=== PATIENT | female | born 1945 | race African-American/Black ===

== ENCOUNTER 2017-11-25 11:20 | Inpatient (IN) | payer MEDICARE, OTHER ==
[2017-11-25] MEDS: DILTIAZEM-D5W 125MG/125ML DRIP 125 ML IV (11:38)
[2017-11-25] MEDS: DILTIAZEM 25 MG INJ IV (11:59)
[2017-11-25] MEDS: SOD CHLORIDE 0.9% 500 ML IV (11:59)
[2017-11-25 12:18] LABS: ADD MAN DIFF? NO
[2017-11-25 12:23] LABS: BASOPHIL # 0.1 10^3/ul (0.0-0.1); BASOPHILS % 1.9 % (0.0-2.0); EOSINOPHILS # 0.3 10^3/ul (0.0-0.5); EOSINOPHILS % 5.1 % (0.0-7.0); HEMATOCRIT 43.6 % (37.0-47.0); HEMOGLOBIN 14.1 g/dl (12.0-16.0); LYMPHOCYTES # 1.6 10^3/ul (0.8-2.9); LYMPHOCYTES % 30.1 % (15.0-51.0); MEAN CORPUSCULAR HEMOGLOBIN 28.6 pg (29.0-33.0); MEAN CORPUSCULAR HGB CONC 32.3 g/dl (32.0-37.0); MEAN CORPUSCULAR VOLUME 88.4 fl (82.0-101.0); MEAN PLATELET VOLUME 11.1 fl (7.4-10.4); MONOCYTE # 0.5 10^3/ul (0.3-0.9); MONOCYTES % 8.6 % (0.0-11.0); NEUTROPHIL # 2.9 10^3/ul (1.6-7.5); NEUTROPHILS % 54.1 % (39.0-77.0); PLATELET COUNT 223 10^3/UL (140-415); RED BLOOD COUNT 4.93 10^6/ul (4.20-5.40); RED CELL DISTRIBUTION WIDTH 12.9 % (11.5-14.5)
[2017-11-25 12:23] LABS: WHITE BLOOD COUNT 5.3 10^3/ul (4.8-10.8)
[2017-11-25 12:40] LABS: INR 0.87; PARTIAL THROMBOPLASTIN TIME 28.1 Sec (25.0-35.0); PROTIME 11.9 Sec (11.9-14.9); PT RATIO 0.9
[2017-11-25 12:51] LABS: ALANINE AMINOTRANSFERASE 15 IU/L (13-69); ALBUMIN 3.9 g/dl (3.3-4.9); ALBUMIN/GLOBULIN RATIO 1.05; ALKALINE PHOSPHATASE 137 IU/L (42-121); ANION GAP 15 (8-16); ASPARTATE AMINO TRANSFERASE 19 IU/L (15-46); BILIRUBIN,INDIRECT 0.3 mg/dl (0-1.1); BILIRUBIN,TOTAL 0.3 mg/dl (0.2-1.3); BLOOD UREA NITROGEN 11 mg/dl (7-20); CALCIUM 9.6 mg/dl (8.4-10.2); CARBON DIOXIDE 28 mmol/L (21-31); CHLORIDE 101 mmol/L (97-110); CREATINE KINASE 37 IU/L (23-200); GLUCOSE 251 mg/dl (70-220); POTASSIUM 3.4 mmol/L (3.5-5.1); SODIUM 141 mmol/L (135-144); TOTAL PROTEIN 7.6 g/dl (6.1-8.1)
[2017-11-25 13:03] LABS: B-TYPE NATRIURETIC PEPTIDE 1320 PG/ML (0-125); CK INDEX 1.1; CK-MB 0.41 ng/ml (0.0-2.4); TROPONIN-I < 0.010 ng/ml (0.000-0.120)
[2017-11-25] MEDS ORDERED: NACL 0.9% 3 ML SYG IV (13:30)
[2017-11-25] MEDS ORDERED: ONDANSETRON 4 MG INJ IV (13:30)
[2017-11-25] MEDS ORDERED: ACETAMINOPHEN 325 MG TAB PO (13:30)
[2017-11-25] MEDS ORDERED: GLUCOSE GEL 15 GRAM TUBE PO ×2 (14:00)
[2017-11-25] MEDS ORDERED: DEXTROSE 50% 50 ML SYRINGE IV ×2 (14:00)
[2017-11-25] MEDS ORDERED: GLUCAGON 1 MG INJ IM (14:00)
[2017-11-25] MEDS ORDERED: GLUCOSE GEL 15 GRAM TUBE BUCCAL (14:00)
[2017-11-25] MEDS: METOPROLOL (XL) 50 MG TAB PO (15:38)
[2017-11-25] MEDS ORDERED: LORAZEPAM 0.5 MG TAB PO (17:00)
[2017-11-25] MEDS: hydrALAzine 20 MG INJ IV ×2 (17:21→22:28)
[2017-11-25] MEDS: metFORMIN 500 MG TAB PO (17:21)
[2017-11-25] MEDS: INSULIN ASPART [NOVOLOG] 3 ML PEN SC ×2 (18:00→20:44)
[2017-11-25] MEDS: NIFEdipine (XL) 60 MG TAB PO (20:41)
[2017-11-25] MEDS: INSULIN GLARGINE [LANTus] (100 UNITS/ML) SYG SC (22:30)
[2017-11-26 05:49] LABS: ADD MAN DIFF? NO
[2017-11-26 06:11] LABS: WHITE BLOOD COUNT 5.3 10^3/ul (4.8-10.8)
[2017-11-26 06:11] LABS: BASOPHIL # 0.1 10^3/ul (0.0-0.1); BASOPHILS % 1.5 % (0.0-2.0); EOSINOPHILS # 0.4 10^3/ul (0.0-0.5); EOSINOPHILS % 6.6 % (0.0-7.0); HEMATOCRIT 38.1 % (37.0-47.0); HEMOGLOBIN 12.4 g/dl (12.0-16.0); LYMPHOCYTES # 1.7 10^3/ul (0.8-2.9); LYMPHOCYTES % 31.5 % (15.0-51.0); MEAN CORPUSCULAR HEMOGLOBIN 28.5 pg (29.0-33.0); MEAN CORPUSCULAR HGB CONC 32.5 g/dl (32.0-37.0); MEAN CORPUSCULAR VOLUME 87.6 fl (82.0-101.0); MEAN PLATELET VOLUME 10.8 fl (7.4-10.4); MONOCYTE # 0.5 10^3/ul (0.3-0.9); MONOCYTES % 9.5 % (0.0-11.0); NEUTROPHIL # 2.7 10^3/ul (1.6-7.5); NEUTROPHILS % 50.5 % (39.0-77.0); PLATELET COUNT 163 10^3/UL (140-415); RED BLOOD COUNT 4.35 10^6/ul (4.20-5.40); RED CELL DISTRIBUTION WIDTH 12.8 % (11.5-14.5)
[2017-11-26 06:42] LABS: ALANINE AMINOTRANSFERASE 17 IU/L (13-69); ALBUMIN 3.3 g/dl (3.3-4.9); ALKALINE PHOSPHATASE 91 IU/L (42-121); ANION GAP 9 (8-16); ASPARTATE AMINO TRANSFERASE 16 IU/L (15-46); BILIRUBIN,INDIRECT 0.2 mg/dl (0-1.1); BILIRUBIN,TOTAL 0.2 mg/dl (0.2-1.3); BLOOD UREA NITROGEN 13 mg/dl (7-20); CALCIUM 9.3 mg/dl (8.4-10.2); CARBON DIOXIDE 27 mmol/L (21-31); CHLORIDE 106 mmol/L (97-110); GLUCOSE 130 mg/dl (70-220); POTASSIUM 3.1 mmol/L (3.5-5.1); SODIUM 139 mmol/L (135-144); TOTAL PROTEIN 6.3 g/dl (6.1-8.1)
[2017-11-26 06:46] LABS: HEMOGLOBIN A1C 8.7 % (0-5.9)
[2017-11-26] MEDS: INSULIN ASPART [NOVOLOG] 3 ML PEN SC ×2 (08:00→11:57)
[2017-11-26] MEDS: NIFEdipine (XL) 60 MG TAB PO (08:22)
[2017-11-26] MEDS: metFORMIN 500 MG TAB PO (08:22)
[2017-11-26] MEDS: METOPROLOL (XL) 50 MG TAB PO (08:23)
[2017-11-26] MEDS: ENOXAPARIN 40 MG/0.4 ML SYG SC (09:30)
[2017-11-26] MEDS: POTASSIUM CHLORIDE (SR) 20 MEQ TAB PO (12:27)
== END 2017-11-26 12:40 | disposition home or self-care (01) | DRG 310 ==
LOC: E/R 11:20 → 6WM 13:08
DX: I48.0 Paroxysmal atrial fibrillation (principal); I10 Essential (primary) hypertension; E11.9 Type 2 diabetes mellitus without complications; F17.210 Nicotine dependence, cigarettes, uncomplicated; Z79.4 Long term (current) use of insulin
CPT/HCPCS: 71045; 80053; 82550; 82553; 82962; 83036; 83880; 84443; 84484; 85025; 85610; 85730; 93005; 93306; 96374; 99291-25

== ENCOUNTER 2018-06-03 14:25 | Inpatient (IN) | payer MEDICARE, OTHER ==
[2018-06-03 14:47] LABS: ADD MAN DIFF? NO
[2018-06-03] MEDS: hydrALAzine 20 MG INJ IV (14:50)
[2018-06-03 14:58] LABS: WHITE BLOOD COUNT 4.8 10^3/ul (4.8-10.8)
[2018-06-03 14:58] LABS: BASOPHIL # 0.1 10^3/ul (0.0-0.1); BASOPHILS % 1.3 % (0.0-2.0); EOSINOPHILS # 0.2 10^3/ul (0.0-0.5); EOSINOPHILS % 3.6 % (0.0-7.0); HEMOGLOBIN 13.5 g/dl (12.0-16.0); LYMPHOCYTES # 1.2 10^3/ul (0.8-2.9); LYMPHOCYTES % 24.1 % (15.0-51.0); MEAN CORPUSCULAR HEMOGLOBIN 28.5 pg (29.0-33.0); MEAN CORPUSCULAR HGB CONC 32.1 g/dl (32.0-37.0); MEAN CORPUSCULAR VOLUME 88.8 fl (82.0-101.0); MEAN PLATELET VOLUME 11.6 fl (7.4-10.4); MONOCYTE # 0.3 10^3/ul (0.3-0.9); MONOCYTES % 6.9 % (0.0-11.0); NEUTROPHIL # 3.1 10^3/ul (1.6-7.5); NEUTROPHILS % 63.9 % (39.0-77.0); PLATELET COUNT 179 10^3/UL (140-415); RED BLOOD COUNT 4.73 10^6/ul (4.20-5.40); RED CELL DISTRIBUTION WIDTH 13.5 % (11.5-14.5)
[2018-06-03 15:17] LABS: INR 0.95; PROTIME 12.8 Sec (11.9-14.9)
[2018-06-03 15:18] LABS: PARTIAL THROMBOPLASTIN TIME 28.5 Sec (23.0-35.0)
[2018-06-03 15:26] LABS: ANION GAP 10 (5-13); BLOOD UREA NITROGEN 25 mg/dl (7-20); CALCIUM 10.1 mg/dl (8.4-10.2); CARBON DIOXIDE 25 mmol/L (21-31); CHLORIDE 104 mmol/L (97-110); CHOL/HDL RATIO 5.3 RATIO; CHOLESTEROL 197 mg/dl (100-200); GLUCOSE 133 mg/dl (70-220); HDL CHOLESTEROL 37 mg/dl (33-92); LDL CHOLESTEROL,CALCULATED 139 mg/dl; POTASSIUM 3.3 mmol/L (3.5-5.1); SODIUM 139 mmol/L (135-144); TRIGLYCERIDES 105 mg/dl (0-149)
[2018-06-03 15:37] LABS: TROPONIN-I < 0.012 ng/ml (0.000-0.120)
[2018-06-03 15:48] LABS: HEMOGLOBIN A1C 6.3 % (0-5.9)
[2018-06-03] MEDS: niCARdipine-NS 0.1MG/ML DRIP 200 ML IV (16:31)
[2018-06-03] MEDS ORDERED: morphine 2 MG INJ IV (17:30)
[2018-06-03] MEDS ORDERED: NACL 0.9% 3 ML SYG IV (17:30)
[2018-06-03] MEDS ORDERED: NITROGLYCERIN (SL) 0.4 MG TAB SL (17:30)
[2018-06-03] MEDS ORDERED: HYDROCODONE/APAP (5/325) TAB PO (17:30)
[2018-06-03] MEDS ORDERED: ACETAMINOPHEN 325 MG TAB PO ×2 (17:30)
[2018-06-03] MEDS ORDERED: MAGNESIUM HYDROXIDE 30ML CUP PO (17:30)
[2018-06-03] MEDS ORDERED: ALBUTEROL/IPRATROPIUM (NEB) 3 ML AMP HHN (17:30)
[2018-06-03] MEDS ORDERED: DOCUSATE SODIUM 100 MG CAP PO (17:30)
[2018-06-03] MEDS ORDERED: ONDANSETRON 4 MG INJ IV (17:30)
[2018-06-03 18:22] LABS: FREE T4 (FREE THYROXINE) 1.53 ng/dl (0.78-2.44)
[2018-06-03] MEDS: SOD CHLORIDE 0.45% 1,000 ML IV (20:18)
[2018-06-03] MEDS: DOCUSATE SODIUM 100 MG CAP PO (20:18)
[2018-06-03] MEDS: FAMOTIDINE 20 MG INJ IV (20:19)
[2018-06-03] MEDS ORDERED: niCARdipine 25 MG in SOD CHLORIDE 0.9% 240 ML IV (22:30)
[2018-06-04] MEDS: niCARdipine 50 MG in SOD CHLORIDE 0.9% 480 ML IV (00:03)
[2018-06-04 05:28] LABS: ADD MAN DIFF? NO
[2018-06-04 05:37] LABS: WHITE BLOOD COUNT 4.1 10^3/ul (4.8-10.8)
[2018-06-04 05:37] LABS: BASOPHIL # 0.1 10^3/ul (0.0-0.1); BASOPHILS % 1.9 % (0.0-2.0); EOSINOPHILS # 0.4 10^3/ul (0.0-0.5); EOSINOPHILS % 8.7 % (0.0-7.0); HEMATOCRIT 40.5 % (37.0-47.0); HEMOGLOBIN 13.5 g/dl (12.0-16.0); LYMPHOCYTES # 1.3 10^3/ul (0.8-2.9); LYMPHOCYTES % 31.3 % (15.0-51.0); MEAN CORPUSCULAR HGB CONC 33.3 g/dl (32.0-37.0); MEAN CORPUSCULAR VOLUME 87.1 fl (82.0-101.0); MEAN PLATELET VOLUME 11.8 fl (7.4-10.4); MONOCYTE # 0.4 10^3/ul (0.3-0.9); MONOCYTES % 9.7 % (0.0-11.0); NEUTROPHILS % 47.9 % (39.0-77.0); PLATELET COUNT 207 10^3/UL (140-415); RED BLOOD COUNT 4.65 10^6/ul (4.20-5.40); RED CELL DISTRIBUTION WIDTH 13.2 % (11.5-14.5)
[2018-06-04 06:06] LABS: ANION GAP 11 (5-13); BLOOD UREA NITROGEN 18 mg/dl (7-20); CALCIUM 9.5 mg/dl (8.4-10.2); CARBON DIOXIDE 24 mmol/L (21-31); CHLORIDE 105 mmol/L (97-110); CREATININE 0.75 mg/dl (0.44-1.00); GLUCOSE 102 mg/dl (70-220); MAGNESIUM 1.5 mg/dl (1.7-2.5); PHOSPHORUS 3.4 mg/dl (2.5-4.9); SODIUM 140 mmol/L (135-144)
[2018-06-04 06:40] LABS: CHOLESTEROL 193 mg/dl (100-200)
[2018-06-04 06:40] LABS: CHOL/HDL RATIO 5.2 RATIO; HDL CHOLESTEROL 37 mg/dl (33-92); LDL CHOLESTEROL,CALCULATED 136 mg/dl; TRIGLYCERIDES 99 mg/dl (0-149)
[2018-06-04] MEDS: SOD CHLORIDE 0.45% 1,000 ML IV ×2 (06:41→20:36)
[2018-06-04 07:02] LABS: HEMOGLOBIN A1C 6.3 % (0-5.9)
[2018-06-04] MEDS: DOCUSATE SODIUM 100 MG CAP PO ×2 (08:24→20:39)
[2018-06-04] MEDS: FISH OIL 1,000 MG CAP PO (08:24)
[2018-06-04] MEDS: METOPROLOL (XL) 50 MG TAB PO (08:29)
[2018-06-04] MEDS: LISINOPRIL 20 MG TAB PO (08:29)
[2018-06-04] MEDS: FAMOTIDINE 20 MG INJ IV (08:32)
[2018-06-04] MEDS: MAGNESIUM SULFATE 2 GM/50 ML 50 ML IVPB (09:54)
[2018-06-04] MEDS: POTASSIUM CHLORIDE 100 ML IVPB ×2 (09:54→13:54)
[2018-06-04] MEDS: LOSARTAN 25 MG TAB PO ×2 (10:30→20:40)
[2018-06-04] MEDS: SOD CHLORIDE 0.9% 100 ML (13:30)
[2018-06-04] MEDS: IOHEXOL 100 ML (13:30)
[2018-06-04] MEDS: LORAZEPAM 2 MG INJ IV (14:32)
[2018-06-04] MEDS: ATORVASTATIN 40 MG TAB PO (20:40)
[2018-06-05 00:36] LABS: ADD UMIC YES; UR ASCORBIC ACID NEGATIVE (NEGATIVE); UR BILIRUBIN (Dip) NEGATIVE (NEGATIVE); UR BLOOD (Dip) 1+ mg/dL (NEGATIVE); UR CLARITY CLEAR (CLEAR); UR COLOR STRAW (YELLOW); UR GLUCOSE (Dip) NEGATIVE (NEGATIVE); UR KETONES (Dip) 1+ mg/dL (NEGATIVE); UR LEUKOCYTE ESTERASE (Dip) NEGATIVE Leu/ul (NEGATIVE); UR NITRITE (Dip) NEGATIVE (NEGATIVE); UR RBC 2 /HPF (0-5); UR SPECIFIC GRAVITY (Dip) 1.025 (1.003-1.030); UR TOTAL PROTEIN (Dip) NEGATIVE (NEGATIVE); UR UROBILINOGEN (Dip) NEGATIVE (NEGATIVE); UR WBC 0 /HPF (0-5)
[2018-06-05 00:50] LABS: AMPHETAMINE/METHAMPHETAMINE Negative (NEGATIVE); BARBITURATES Negative (NEGATIVE); BENZODIAZEPINES Negative (NEGATIVE); CANNABINOIDS Negative (NEGATIVE); COCAINE Negative (NEGATIVE); OPIATES Negative (NEGATIVE)
[2018-06-05] MEDS: niCARdipine 50 MG in SOD CHLORIDE 0.9% 480 ML IV (04:07)
[2018-06-05 04:56] LABS: ADD MAN DIFF? NO
[2018-06-05 05:32] LABS: BASOPHIL # 0.1 10^3/ul (0.0-0.1); BASOPHILS % 1.6 % (0.0-2.0); EOSINOPHILS # 0.4 10^3/ul (0.0-0.5); EOSINOPHILS % 11.3 % (0.0-7.0); HEMATOCRIT 41.2 % (37.0-47.0); HEMOGLOBIN 13.3 g/dl (12.0-16.0); LYMPHOCYTES # 0.9 10^3/ul (0.8-2.9); LYMPHOCYTES % 24.7 % (15.0-51.0); MEAN CORPUSCULAR HEMOGLOBIN 28.7 pg (29.0-33.0); MEAN CORPUSCULAR HGB CONC 32.3 g/dl (32.0-37.0); MEAN PLATELET VOLUME 11.1 fl (7.4-10.4); MONOCYTE # 0.4 10^3/ul (0.3-0.9); MONOCYTES % 9.7 % (0.0-11.0); NEUTROPHILS % 52.4 % (39.0-77.0); PLATELET COUNT 210 10^3/UL (140-415); RED BLOOD COUNT 4.63 10^6/ul (4.20-5.40); RED CELL DISTRIBUTION WIDTH 13.2 % (11.5-14.5)
[2018-06-05 05:32] LABS: WHITE BLOOD COUNT 3.7 10^3/ul (4.8-10.8)
[2018-06-05 05:50] LABS: ANION GAP 10 (5-13); BLOOD UREA NITROGEN 13 mg/dl (7-20); CALCIUM 9.2 mg/dl (8.4-10.2); CARBON DIOXIDE 23 mmol/L (21-31); CHLORIDE 105 mmol/L (97-110); CREATININE 0.65 mg/dl (0.44-1.00); GLUCOSE 89 mg/dl (70-220); POTASSIUM 3.2 mmol/L (3.5-5.1); SODIUM 138 mmol/L (135-144)
[2018-06-05] MEDS: DOCUSATE SODIUM 100 MG CAP PO ×2 (09:00→21:01)
[2018-06-05] MEDS: METOPROLOL (XL) 50 MG TAB PO (09:00)
[2018-06-05] MEDS: FISH OIL 1,000 MG CAP PO (09:00)
[2018-06-05] MEDS: LOSARTAN 25 MG TAB PO ×3 (09:00→21:01)
[2018-06-05] MEDS: FAMOTIDINE 20 MG INJ IV (09:07)
[2018-06-05] MEDS: SOD CHLORIDE 0.45% 1,000 ML IV (12:11)
[2018-06-05] MEDS: POTASSIUM CHLORIDE 50 ML IVPB ×3 (14:04→17:02)
[2018-06-05] MEDS: ATORVASTATIN 40 MG TAB PO (21:00)
[2018-06-06] MEDS: SOD CHLORIDE 0.45% 1,000 ML IV ×2 (00:38→12:59)
[2018-06-06] MEDS: niCARdipine 50 MG in SOD CHLORIDE 0.9% 480 ML IV (00:39)
[2018-06-06 05:00] LABS: ADD MAN DIFF? NO
[2018-06-06 05:09] LABS: BASOPHIL # 0.1 10^3/ul (0.0-0.1); BASOPHILS % 1.3 % (0.0-2.0); EOSINOPHILS # 0.6 10^3/ul (0.0-0.5); HEMATOCRIT 37.7 % (37.0-47.0); HEMOGLOBIN 12.1 g/dl (12.0-16.0); LYMPHOCYTES # 1.1 10^3/ul (0.8-2.9); LYMPHOCYTES % 28.6 % (15.0-51.0); MEAN CORPUSCULAR HEMOGLOBIN 28.5 pg (29.0-33.0); MEAN CORPUSCULAR HGB CONC 32.1 g/dl (32.0-37.0); MEAN CORPUSCULAR VOLUME 88.7 fl (82.0-101.0); MEAN PLATELET VOLUME 11.4 fl (7.4-10.4); MONOCYTE # 0.5 10^3/ul (0.3-0.9); MONOCYTES % 11.3 % (0.0-11.0); NEUTROPHIL # 1.8 10^3/ul (1.6-7.5); NEUTROPHILS % 44.5 % (39.0-77.0); PLATELET COUNT 157 10^3/UL (140-415); RED BLOOD COUNT 4.25 10^6/ul (4.20-5.40)
[2018-06-06 05:34] LABS: ANION GAP 11 (5-13); BLOOD UREA NITROGEN 8 mg/dl (7-20); CALCIUM 8.7 mg/dl (8.4-10.2); CARBON DIOXIDE 23 mmol/L (21-31); CHLORIDE 106 mmol/L (97-110); CREATININE 0.66 mg/dl (0.44-1.00); GLUCOSE 103 mg/dl (70-220); POTASSIUM 3.1 mmol/L (3.5-5.1); SODIUM 140 mmol/L (135-144)
[2018-06-06] MEDS: POTASSIUM CHLORIDE 50 ML IVPB ×6 (06:27→14:20)
[2018-06-06] MEDS: DOCUSATE SODIUM 100 MG CAP PO ×2 (08:16→20:27)
[2018-06-06] MEDS: FISH OIL 1,000 MG CAP PO (08:16)
[2018-06-06] MEDS: FAMOTIDINE 20 MG INJ IV (08:16)
[2018-06-06] MEDS: METOPROLOL (XL) 50 MG TAB PO (08:17)
[2018-06-06] MEDS: LOSARTAN 25 MG TAB PO ×2 (08:17→20:28)
[2018-06-06] MEDS ORDERED: NIFEdipine (XL) 30 MG TAB PO (10:00)
[2018-06-06 10:16] LABS: MAGNESIUM 1.6 mg/dl (1.7-2.5)
[2018-06-06] MEDS: INSULIN ASPART [NOVOLOG] 3 ML PEN SC ×3 (11:30→20:37)
[2018-06-06] MEDS ORDERED: NIFEdipine 10 MG CAP PO (12:00)
[2018-06-06] MEDS: METOPROLOL (XL) 25 MG TAB PO (12:07)
[2018-06-06] MEDS: MAGNESIUM SULFATE 2 GM/50 ML 50 ML IVPB (12:59)
[2018-06-06] MEDS: NIFEdipine 10 MG CAP PO ×4 (14:20→20:27)
[2018-06-06] MEDS: LORAZEPAM 2 MG INJ IV (15:36)
[2018-06-06] MEDS: ATORVASTATIN 40 MG TAB PO (20:27)
[2018-06-06] MEDS: QUETIAPINE 25 MG TAB PO (20:28)
[2018-06-07] MEDS: NIFEdipine 10 MG CAP PO ×8 (02:11→20:32)
[2018-06-07 05:29] LABS: ADD MAN DIFF? NO
[2018-06-07 05:34] LABS: BASOPHIL # 0.1 10^3/ul (0.0-0.1); BASOPHILS % 1.2 % (0.0-2.0); EOSINOPHILS # 0.7 10^3/ul (0.0-0.5); HEMATOCRIT 41.9 % (37.0-47.0); HEMOGLOBIN 13.6 g/dl (12.0-16.0); LYMPHOCYTES # 1.6 10^3/ul (0.8-2.9); LYMPHOCYTES % 35.7 % (15.0-51.0); MEAN CORPUSCULAR HEMOGLOBIN 29.1 pg (29.0-33.0); MEAN CORPUSCULAR HGB CONC 32.5 g/dl (32.0-37.0); MEAN CORPUSCULAR VOLUME 89.5 fl (82.0-101.0); MEAN PLATELET VOLUME 11.1 fl (7.4-10.4); MONOCYTE # 0.5 10^3/ul (0.3-0.9); MONOCYTES % 10.6 % (0.0-11.0); NEUTROPHIL # 1.6 10^3/ul (1.6-7.5); NEUTROPHILS % 36.4 % (39.0-77.0); PLATELET COUNT 159 10^3/UL (140-415); RED BLOOD COUNT 4.68 10^6/ul (4.20-5.40); RED CELL DISTRIBUTION WIDTH 13.3 % (11.5-14.5)
[2018-06-07 05:34] LABS: WHITE BLOOD COUNT 4.3 10^3/ul (4.8-10.8)
[2018-06-07 05:55] LABS: EOSINOPHILS % 16.1 % (0.0-7.0); POSITIVE DIFF @See below
[2018-06-07 05:56] LABS: MAGNESIUM 2.4 mg/dl (1.7-2.5)
[2018-06-07 05:56] LABS: PHOSPHORUS 3.3 mg/dl (2.5-4.9)
[2018-06-07 05:57] LABS: ANION GAP 5 (5-13); BLOOD UREA NITROGEN 8 mg/dl (7-20); CALCIUM 9.9 mg/dl (8.4-10.2); CARBON DIOXIDE 27 mmol/L (21-31); CHLORIDE 108 mmol/L (97-110); CREATININE 0.72 mg/dl (0.44-1.00); GLUCOSE 93 mg/dl (70-220); POTASSIUM 3.9 mmol/L (3.5-5.1); SODIUM 140 mmol/L (135-144)
[2018-06-07 06:02] LABS: IRON 48 ug/dl (35-150)
[2018-06-07 06:12] LABS: % IRON SATURATION 16 % SAT (22-52); TOTAL IRON BINDING CAPACITY 296 ug/dl (241-421)
[2018-06-07] MEDS: hydrALAzine 20 MG INJ IV ×2 (07:03→22:03)
[2018-06-07] MEDS: INSULIN ASPART [NOVOLOG] 3 ML PEN SC ×4 (07:35→20:25)
[2018-06-07] MEDS: QUETIAPINE 25 MG TAB PO ×2 (08:38→20:25)
[2018-06-07] MEDS: METOPROLOL (XL) 50 MG TAB PO (08:39)
[2018-06-07] MEDS: FISH OIL 1,000 MG CAP PO (08:39)
[2018-06-07] MEDS: DOCUSATE SODIUM 100 MG CAP PO ×3 (08:41→20:37)
[2018-06-07] MEDS: FAMOTIDINE 20 MG INJ IV (08:41)
[2018-06-07] MEDS: LOSARTAN 25 MG TAB PO ×2 (08:41→20:26)
[2018-06-07] MEDS ORDERED: BISACODYL 10 MG SUPP PR (10:00)
[2018-06-07] MEDS: SOD CHLORIDE 0.9% 1,000 ML IV (10:26)
[2018-06-07] MEDS: BISACODYL 10 MG SUPP PR (10:28)
[2018-06-07] MEDS ORDERED: morphine LIQ (10 MG/5 ML) CUP PO (11:30)
[2018-06-07] MEDS: SOD FERRIC GLUC COMPLX 125 MG in SOD CHLORIDE 0.9% 100 ML IVPB (12:36)
[2018-06-07] MEDS: LORAZEPAM 2 MG INJ IV (14:54)
[2018-06-07] MEDS: ATORVASTATIN 40 MG TAB PO (20:25)
[2018-06-08] MEDS: NIFEdipine 10 MG CAP PO ×8 (02:30→21:06)
[2018-06-08] MEDS: LORAZEPAM 2 MG INJ IV (04:57)
[2018-06-08] MEDS: SOD CHLORIDE 0.9% 1,000 ML IV (05:42)
[2018-06-08] MEDS: INSULIN ASPART [NOVOLOG] 3 ML PEN SC ×4 (07:35→21:00)
[2018-06-08] MEDS: FAMOTIDINE 20 MG TAB PO (08:26)
[2018-06-08] MEDS: LOSARTAN 25 MG TAB PO ×2 (08:27→21:07)
[2018-06-08] MEDS: METOPROLOL (XL) 50 MG TAB PO (08:27)
[2018-06-08] MEDS: FISH OIL 1,000 MG CAP PO (08:28)
[2018-06-08] MEDS: DOCUSATE SODIUM 100 MG CAP PO ×2 (08:28→21:06)
[2018-06-08] MEDS: QUETIAPINE 25 MG TAB PO ×2 (08:28→21:07)
[2018-06-08] MEDS: hydrALAzine 20 MG INJ IV (08:46)
[2018-06-08 10:09] LABS: ADD MAN DIFF? NO
[2018-06-08 10:13] LABS: BASOPHIL # 0.1 10^3/ul (0.0-0.1); BASOPHILS % 1.6 % (0.0-2.0); EOSINOPHILS # 0.3 10^3/ul (0.0-0.5); EOSINOPHILS % 8.8 % (0.0-7.0); HEMATOCRIT 43.8 % (37.0-47.0); HEMOGLOBIN 14.1 g/dl (12.0-16.0); LYMPHOCYTES # 0.9 10^3/ul (0.8-2.9); LYMPHOCYTES % 23.8 % (15.0-51.0); MEAN CORPUSCULAR HEMOGLOBIN 28.7 pg (29.0-33.0); MEAN CORPUSCULAR HGB CONC 32.2 g/dl (32.0-37.0); MONOCYTE # 0.5 10^3/ul (0.3-0.9); MONOCYTES % 12.6 % (0.0-11.0); NEUTROPHIL # 1.9 10^3/ul (1.6-7.5); NEUTROPHILS % 52.9 % (39.0-77.0); PLATELET COUNT 194 10^3/UL (140-415); RED BLOOD COUNT 4.92 10^6/ul (4.20-5.40); RED CELL DISTRIBUTION WIDTH 13.5 % (11.5-14.5)
[2018-06-08 10:13] LABS: WHITE BLOOD COUNT 3.7 10^3/ul (4.8-10.8)
[2018-06-08 10:28] LABS: ANION GAP 17 (5-13); BLOOD UREA NITROGEN 8 mg/dl (7-20); CARBON DIOXIDE 24 mmol/L (21-31); CHLORIDE 100 mmol/L (97-110); CREATININE 0.63 mg/dl (0.44-1.00); GLUCOSE 186 mg/dl (70-220); POTASSIUM 3.7 mmol/L (3.5-5.1); SODIUM 141 mmol/L (135-144)
[2018-06-08] MEDS: SOD FERRIC GLUC COMPLX 125 MG in SOD CHLORIDE 0.9% 100 ML IVPB (13:34)
[2018-06-08] MEDS: ATORVASTATIN 40 MG TAB PO (21:06)
[2018-06-09] MEDS: SOD CHLORIDE 0.9% 1,000 ML IV (01:52)
[2018-06-09] MEDS: NIFEdipine 10 MG CAP PO ×8 (02:30→21:35)
[2018-06-09 06:27] LABS: ADD MAN DIFF? NO
[2018-06-09 06:32] LABS: BASOPHILS % 1.1 % (0.0-2.0); EOSINOPHILS # 0.6 10^3/ul (0.0-0.5); EOSINOPHILS % 15.1 % (0.0-7.0); HEMATOCRIT 41.8 % (37.0-47.0); HEMOGLOBIN 13.5 g/dl (12.0-16.0); LYMPHOCYTES # 1.1 10^3/ul (0.8-2.9); LYMPHOCYTES % 29.4 % (15.0-51.0); MEAN CORPUSCULAR HEMOGLOBIN 28.9 pg (29.0-33.0); MEAN CORPUSCULAR HGB CONC 32.3 g/dl (32.0-37.0); MEAN CORPUSCULAR VOLUME 89.5 fl (82.0-101.0); MEAN PLATELET VOLUME 11.4 fl (7.4-10.4); MONOCYTE # 0.5 10^3/ul (0.3-0.9); MONOCYTES % 12.2 % (0.0-11.0); NEUTROPHIL # 1.6 10^3/ul (1.6-7.5); NEUTROPHILS % 41.9 % (39.0-77.0); PLATELET COUNT 179 10^3/UL (140-415); RED BLOOD COUNT 4.67 10^6/ul (4.20-5.40); RED CELL DISTRIBUTION WIDTH 13.5 % (11.5-14.5)
[2018-06-09 06:32] LABS: WHITE BLOOD COUNT 3.8 10^3/ul (4.8-10.8)
[2018-06-09 07:01] LABS: ANION GAP 5 (5-13); BLOOD UREA NITROGEN 9 mg/dl (7-20); CALCIUM 9.8 mg/dl (8.4-10.2); CARBON DIOXIDE 28 mmol/L (21-31); CHLORIDE 107 mmol/L (97-110); CREATININE 0.75 mg/dl (0.44-1.00); GLUCOSE 140 mg/dl (70-220); POTASSIUM 3.1 mmol/L (3.5-5.1); SODIUM 140 mmol/L (135-144)
[2018-06-09] MEDS: INSULIN ASPART [NOVOLOG] 3 ML PEN SC ×4 (08:00→21:00)
[2018-06-09] MEDS: FAMOTIDINE 20 MG TAB PO (08:12)
[2018-06-09] MEDS: METOPROLOL (XL) 50 MG TAB PO (08:12)
[2018-06-09] MEDS: FISH OIL 1,000 MG CAP PO (08:12)
[2018-06-09] MEDS: QUETIAPINE 25 MG TAB PO ×2 (08:13→21:35)
[2018-06-09] MEDS: LOSARTAN 25 MG TAB PO ×2 (08:13→21:34)
[2018-06-09] MEDS: DOCUSATE SODIUM 100 MG CAP PO ×2 (08:15→21:34)
[2018-06-09] MEDS: POTASSIUM CHLORIDE 100 ML IVPB ×3 (10:53→12:10)
[2018-06-09] MEDS: ATORVASTATIN 40 MG TAB PO (21:34)
[2018-06-10] MEDS: NIFEdipine 10 MG CAP PO ×8 (04:23→20:57)
[2018-06-10 06:18] LABS: ADD MAN DIFF? NO
[2018-06-10 06:29] LABS: WHITE BLOOD COUNT 3.9 10^3/ul (4.8-10.8)
[2018-06-10 06:29] LABS: BASOPHIL # 0.1 10^3/ul (0.0-0.1); EOSINOPHILS # 0.5 10^3/ul (0.0-0.5); EOSINOPHILS % 12.5 % (0.0-7.0); HEMATOCRIT 42.3 % (37.0-47.0); HEMOGLOBIN 13.6 g/dl (12.0-16.0); LYMPHOCYTES # 1.3 10^3/ul (0.8-2.9); LYMPHOCYTES % 31.8 % (15.0-51.0); MEAN CORPUSCULAR HEMOGLOBIN 28.9 pg (29.0-33.0); MEAN CORPUSCULAR HGB CONC 32.2 g/dl (32.0-37.0); MONOCYTE # 0.5 10^3/ul (0.3-0.9); MONOCYTES % 12.5 % (0.0-11.0); NEUTROPHIL # 1.6 10^3/ul (1.6-7.5); NEUTROPHILS % 40.9 % (39.0-77.0); PLATELET COUNT 166 10^3/UL (140-415); RED CELL DISTRIBUTION WIDTH 13.4 % (11.5-14.5)
[2018-06-10 07:00] LABS: ANION GAP 7 (5-13); BLOOD UREA NITROGEN 17 mg/dl (7-20); CALCIUM 10.1 mg/dl (8.4-10.2); CARBON DIOXIDE 24 mmol/L (21-31); CHLORIDE 108 mmol/L (97-110); CREATININE 1.06 mg/dl (0.44-1.00); GLUCOSE 143 mg/dl (70-220); POTASSIUM 3.8 mmol/L (3.5-5.1); SODIUM 139 mmol/L (135-144)
[2018-06-10] MEDS: INSULIN ASPART [NOVOLOG] 3 ML PEN SC ×4 (07:56→21:00)
[2018-06-10] MEDS: FAMOTIDINE 20 MG TAB PO (08:25)
[2018-06-10] MEDS: FISH OIL 1,000 MG CAP PO (08:25)
[2018-06-10] MEDS: QUETIAPINE 25 MG TAB PO ×2 (08:25→20:58)
[2018-06-10] MEDS: DOCUSATE SODIUM 100 MG CAP PO ×2 (08:25→20:59)
[2018-06-10] MEDS: LOSARTAN 25 MG TAB PO ×2 (08:26→20:59)
[2018-06-10] MEDS: METOPROLOL (XL) 50 MG TAB PO (08:27)
[2018-06-10 13:21] LABS: PHOSPHORUS 4.2 mg/dl (2.5-4.9)
[2018-06-10 13:21] LABS: MAGNESIUM 1.8 mg/dl (1.7-2.5)
[2018-06-10] MEDS: MAGNESIUM SULFATE 1 GM/D5W 100 ML IVPB (15:24)
[2018-06-10] MEDS: ATORVASTATIN 40 MG TAB PO (20:58)
[2018-06-11] MEDS ORDERED: METOPROLOL 50 MG TAB PO (09:00)
== END 2018-06-10 21:35 | DRG 65 ==
LOC: ICU 06-07 06:32 → 6WM 06-09 09:13 → E/R 14:25 → 6WM 06-08 23:18 → ICU 16:31
DX: I61.0 Nontraumatic intracerebral hemorrhage in hemisphere, subcortical (principal); I16.1 Hypertensive emergency; G93.40 Encephalopathy, unspecified; F03.90 Unspecified dementia, unspecified severity, without behavioral disturbance, psychotic disturbance, mood disturbance, and anxiety; I48.0 Paroxysmal atrial fibrillation; E83.42 Hypomagnesemia; E11.9 Type 2 diabetes mellitus without complications; E87.6 Hypokalemia; D50.9 Iron deficiency anemia, unspecified; I10 Essential (primary) hypertension; I16.0 Hypertensive urgency; H54.61 Unqualified visual loss, right eye, normal vision left eye; I25.2 Old myocardial infarction; Z79.82 Long term (current) use of aspirin; Z87.891 Personal history of nicotine dependence; Z86.73 Personal history of transient ischemic attack (TIA), and cerebral infarction without residual deficits; Z79.84 Long term (current) use of oral hypoglycemic drugs
CPT/HCPCS: 36415; 70450; 70496; 70551; 71045; 80048; 80061; 80307; 81001; 82962; 83036; 83540; 83735; 84100; 84439; 84443; 84484; 85025; 85610; 85730; 87081; 87086; 92610; 93005; 93306; 96374; 96375; 97110; 97116; 97163; 97167; 97530; 97535; 99291-25